=== PATIENT | male | born 1990 | race Caucasian/White ===

== ENCOUNTER 2018-06-29 07:55 | Emergency (ER) | payer MEDICAID ==
[2018-06-29] MEDS ORDERED: Sodium Chloride 0.9% 1,000 ML IV ONE ×2 (08:30→08:31)
--- NOTE | 2018-06-29 08:30 | ED Physician Chart ---
ED Chief Complaint/HPI - Patient Information Date Seen:: 06/29/18 Time Seen:: 08:24 Chief Complaint:: abd pain diarhea History of Present Illness:: 27 yr old male who ate domin[employer] salami pineapple at midnight and since then watery diarhea and vomiting non stop other members mom dad similar sxs Allergies:: Allergies Allergy/AdvReac Type Severity Reaction Status Date / Time No Known Allergies Allergy Verified 06/29/18 08:07 Vitals:: Vital Signs - 8 hr 06/29/18 06/29/18 08:07 08:09 Temp 98.2 F 98.2 F HR 107 107 RR 24 16 BP 155/71 155/71 O2 Sat % 99 99 ED Review of Systems - Review of Systems General/Constitutional: Weakness Skin: No skin lesions Head: No headache Eyes: No loss of vision ENT: No earache Neck: No neck pain Cardio Vascular: No chest pain Pulmonary: No SOB GI: Nausea, Vomiting, Diarrhea Musculoskeletal: No bone or joint pain Endocrine: No polyuria Psychiatric: No depression Hematopoietic: No bruising Allergic/Immuno: No urticaria Neurological: No syncope ED Past Medical History - Past Medical History Past Medical History: No significant medical hx Family Medical History - Family Member Grandmother History Unknown: Yes Ethnicity: Non- Living Status: Still Living Hx Family Cancer: No Hx Family Coronary Artery Disease: No Hx Family Congestive Heart Failure: No Hx Family Hypertension: Yes Hx Family Stroke: No Hx Family Diabetes: Yes Hx Family Seizures: No Hx Family Dementia: No Hx Family AIDS: No Hx Family HIV: No Hx Family COPD: No Hx Family Hepatitis: No Hx Family Psychiatric Problems: No Hx Family Tuberculosis: No ED Physical Exam - Physical Examination General/Constitutional: Awake, Well-developed, well-nourished, Alert Head: Atraumatic Eyes: Lids, conjuctiva normal, PERRL, EOMI Skin: Nl inspection, No rash, No skin lesions, No ecchymosis, Well hydrated, No lymphadenopathy ENMT: External ears, nose nl, Nasal exam nl, Lips, teeth, gums nl Neck: Nontender, Full ROM w/o pain, No JVD, No nuchal rigidity, No bruit, No mass, No stridor Respiratory: Nl effort/Exclusion, Clear to Auscultation, No Wheeze/Rhonchi/Rales Cardio Vascular: RRR, No murmur, gallop, rubs, NL S1 S2 GI: No tenderness/rebounding/guarding, No organomegaly, No hernia, Normal BS's, Nondistended, No mass/bruits, No McBurney tenderness : No CVA tenderness Extremities: No tenderness or effusion, Full ROM, normal strength in all extremities, No edema, Normal digits & nails Neuro/Psych: Alert/oriented, DTR's symmetric, Normal sensory exam, Normal motor strength, Judgement/insight normal, Mood normal, Normal gait, No focal deficits Misc: Normal back, No paraspinal tenderness ED Assessment - Assessment General Assessment: abd pain diarhea gastroenteritis ED Septic Shock - . Is Septic Shock (SBP<90, OR Lactate>4 mmol\L) present?: No - <6hrs of presentation: Vital Signs: Vital Signs - 8 hr 06/29/18 06/29/18 08:07 08:09 Temp 98.2 F 98.2 F HR 107 107 RR 24 16 BP 155/71 155/71 O2 Sat % 99 99 ED Reassessment (Disposition) - Reassessment Reassessment Condition:: Improved - Diagnosis Diagnosis:: abd pain nv bloody diahea invasive gastroenteritis probable salmonella shigella labs stool sample - Patient Disposition Discharge/Transfer:: Acute Care w/in this hosp Admitted to:: Med/Surg
[2018-06-29 08:44] LABS: URINE SOURCE CLEAN C
[2018-06-29 08:47] LABS: HEMATOCRIT 54.9 % (41.0-60); HEMOGLOBIN 18.8 gm/dL (12-16); MEAN CELL VOLUME 92.1 fl (80-99); MEAN CORPUSCULAR HEMOGLOBIN 31.6 pg (26.0-30.0); MEAN CORPUSCULAR HGB CONC 34.3 pg (28.0-36.0); MEAN PLATELET VOLUME 8.9 fl; PLATELET COUNT 188 Th/cmm (150-400); RED BLOOD COUNT 5.96 Mil/cmm (4.30-5.70); RED CELL DISTRIBUTION WIDTH 11.2 % (11.5-20.0); URINE BLOOD SMALL (NEGATIVE); URINE GLUCOSE (UA) NEGATIVE (NEGATIVE); URINE KETONE TRACE mg/dL (NEGATIVE); URINE LEUKOCYTE ESTERASE NEGATIVE (NEGATIVE); URINE MICROSCOPIC INDICATED? YES; URINE NITRATE NEGATIVE (NEGATIVE); URINE PROTEIN 30 mg/dL (NEGATIVE); URINE UROBILINOGEN 0.2 E.U./dL (0.2 - 1.0); WHITE BLOOD COUNT 13.4 Th/cmm (4.8-10.8)
[2018-06-29 08:56] LABS: URINE CLARITY CLEAR (CLEAR); URINE COLOR DARK YELLOW
[2018-06-29 09:00] LABS: ALB/GLOB RATIO 2.1 (1.0-1.8); ALKALINE PHOSPHATASE 53 U/L (34-104); ANION GAP 15.5 (7.0-16.0); BILIRUBIN,TOTAL 1.7 mg/dL (0.3-1.0); BUN - UREA NITROGEN 18 mg/dL (7-25); CALCIUM SERUM 9.7 mg/dL (8.6-10.3); CARBON DIOXIDE 20.2 mEq/L (21.0-31.0); CHLORIDE 104 mEq/L (98-107); CREATININE - SERUM 1.1 mg/dL (0.7-1.3); GFR AFRICAN-AMERICAN > 60.0 ml/min (>90); GFR NON AFRICAN-AMERICAN > 60.0 ml/min; GLUCOSE 186 mg/dL (70-105); POTASSIUM SERUM 3.7 mEq/L (3.5-5.1); SGOT 23 U/L (13-39); SGPT/ALT 53 U/L (7-52); SODIUM SERUM 136 mEq/L (136-145); TOTAL PROTEIN,SERUM 7.4 gm/dL (6.0-8.3)
[2018-06-29 09:03] LABS: URINE BACTERIA NONE SEEN /hpf (NONE SEEN); URINE BILIRUBIN SMALL (NEGATIVE); URINE EPITHELIAL CELLS OCCASIONAL /lpf (FEW); URINE WBC 0-2 /hpf (0-5)
[2018-06-29 09:41] LABS: BAND NEUTROPHILE 12 % (0-10); BASOPHIL 0 % (0-3); EOSINOPHIL 0 % (0-5); LYMPHOCYTE 5 % (20-50); MONOCYTE 5 % (2-10); NEUTROPHILS 78 % (40-80)
[2018-06-29 09:42] LABS: PLATELET ESTIMATE ADEQUATE (NORMAL)
== END 2018-06-29 12:45 | disposition home or self-care (01) ==
LOC: ER 07:55
DX: K52.9 Noninfective gastroenteritis and colitis, unspecified (principal); R53.1 Weakness
CPT/HCPCS: 99284; 96374; 36415; 85007; 85025; 89055; 81001; 83036; 80053; 87046; 87040 ×2; J2405; Z7502